=== PATIENT | female | born 1950 | race Caucasian/White ===

== ENCOUNTER 2023-01-08 12:55 | Emergency (ER) | payer MEDICARE ==
[2023-01-08 13:11] VITALS: O2SAT 100
[2023-01-08 14:45] LABS: BASOPHILS % 0.6 % (0.0-1.0); EOSINOPHILS # (AUTO) 0.1 (0.0-0.4); EOSINOPHILS % 1.4 % (0.0-6.0); HEMATOCRIT 41.8 % (34.2-44.1); HEMOGLOBIN 14.1 g/dL (12.0-16.0); LYMPHOCYTES # (AUTO) 1.7 (1.0-3.2); LYMPHOCYTES % 32.9 % (18.0-39.1); MEAN CORPUSCULAR HEMOGLOBIN 30.2 pg (28-32); MEAN CORPUSCULAR HGB CONC 33.7 g/dL (31-35); MEAN CORPUSCULAR VOLUME 89.5 fL (81-99); MONOCYTES # (AUTO) 0.3 (0.2-0.8); MONOCYTES % 6.6 % (4.4-11.3); NEUTROPHILS % 58.1 % (38.7-80.0); PLATELET COUNT 297 x10e3/uL (140-360); RED BLOOD COUNT 4.67 x10e6/uL (3.6-5.1); RED CELL DISTRIBUTION WIDTH 12.8 % (11.7-14.4)
[2023-01-08 14:56] LABS: ALANINE AMINOTRANSFERASE 22 IU/L (0-55); ALBUMIN 4.5 g/dL (3.5-5.0); ALBUMIN/GLOBULIN RATIO 1.2 (0.8-2.0); ALKALINE PHOSPHATASE 75 IU/L (40-150); ANION GAP 17.2 mmol/L (8-16); BLOOD UREA NITROGEN 16 mg/dL (7-26); BUN/CREATININE RATIO 19 (6-25); CALCIUM 9.7 mg/dL (8.4-10.2); CARBON DIOXIDE 24 mmol/L (22-29); CHLORIDE 103 mmol/L (98-107); CREATINE KINASE 135 IU/L (29-168); CREATININE, SERUM 0.83 mg/dL (0.57-1.11); GLUCOSE 103 mg/dL (74-118); POTASSIUM 4.2 mmol/L (3.5-5.1); SODIUM 140 mmol/L (136-145)
== END 2023-01-08 17:02 | disposition home or self-care (01) ==
LOC: ER 13:16
DX: F41.9 Anxiety disorder, unspecified (principal); R14.2 Eructation; I10 Essential (primary) hypertension; E78.5 Hyperlipidemia, unspecified; K21.9 Gastro-esophageal reflux disease without esophagitis
CPT/HCPCS: 36415; 71045; 80053; 82550; 82553; 84484; 85025; 93005; 99283

== ENCOUNTER 2024-03-02 18:11 | Emergency (ER) | payer MEDICARE ==
[~2024-03-02] VITALS: Ht 152.4 cm; Wt 73.5 kg
[2024-03-02] MEDS: IBUPROFEN 600 MG TAB PO STA (19:09)
[2024-03-02] MEDS ORDERED: IBUPROFEN 600 MG TAB ONE (19:12)
[2024-03-02] MEDS: ACETAMINOPHEN 325 MG TAB PO ONE (19:56)
[2024-03-02 21:05] VITALS: PULSE 110; RESP 20; TEMP 99.6; O2SAT 97
== END 2024-03-02 21:44 | disposition home or self-care (01) ==
LOC: FSED 18:15
DX: R50.9 Fever, unspecified (principal); U07.1 COVID-19; R05.9 Cough, unspecified; I10 Essential (primary) hypertension; E78.5 Hyperlipidemia, unspecified; K21.9 Gastro-esophageal reflux disease without esophagitis; F41.9 Anxiety disorder, unspecified
CPT/HCPCS: 0223U; 83518; 87400; 99283

== ENCOUNTER 2024-03-04 22:28 | Emergency (ER) | payer MEDICARE ==
[~2024-03-04] VITALS: Ht 152.4 cm; Wt 73.5 kg
[2024-03-05 00:40] VITALS: PULSE 84; RESP 16; TEMP 98.3
[2024-03-05 01:33] VITALS: BP 127/62; PULSE 74; RESP 18; TEMP 98.3; O2SAT 98
== END 2024-03-05 00:40 | disposition home or self-care (01) ==
LOC: FSED 22:32
DX: R06.02 Shortness of breath (principal); R05.9 Cough, unspecified; I10 Essential (primary) hypertension; E78.5 Hyperlipidemia, unspecified; K21.9 Gastro-esophageal reflux disease without esophagitis; F41.9 Anxiety disorder, unspecified
CPT/HCPCS: 71046; 99283